=== PATIENT | female | born 1985 | race Two or more races ===

== ENCOUNTER 2017-11-27 12:08 | Emergency (ER) | payer MEDICAID ==
[~2017-11-27] VITALS: Ht 147.3 cm; Wt 72.6 kg
[2017-11-27 12:12] VITALS: Ht 147.3 cm; Wt 72.6 kg
[2017-11-27 15:11] VITALS: BP 122/83
== END 2017-11-27 15:11 | disposition home or self-care (01) ==
LOC: ED 12:08
DX: K12.2 Cellulitis and abscess of mouth (principal); F41.9 Anxiety disorder, unspecified
CPT/HCPCS: J2001